=== PATIENT | female | born 1960 | race Caucasian/White ===

== ENCOUNTER → 2017-12-07 08:46 | Outpatient (CLI) | payer OTHER, SELFPAY ==
--- NOTE | 2017-12-07 08:53 | DI.MG.S_ITS ---
BILATERAL DIGITAL SCREENING MAMMOGRAM 3D/2D WITH CAD: 12/07/2017 CLINICAL: Routine screening. Comparison is made to exams dated: 04/22/2016 mammogram and 05/17/2014 mammogram - [facility]. There are scattered fibroglandular elements in both breasts. Current study was also evaluated with a Computer Aided Detection (CAD) system. No significant masses, calcifications, or other findings are seen in either breast. There has been no significant interval change. IMPRESSION: NEGATIVE There is no mammographic evidence of malignancy. A 1 year screening mammogram is recommended. This exam was interpreted at Station ID: [id number]. NOTE: For mammograms, a report in lay terms will be sent to the patient. Approximately 15% of breast malignancies will not be visualized mammographically. In the management of a palpable breast mass, a negative mammogram must not discourage biopsy of a clinically suspicious lesion. Electronically Signed By: Jorge Luis suresh/gordon:12/07/2017 13:24:06 letter sent: Normal Exam ACR BI-RADS Category 1: Negative 3341F
[2017-12-07 11:50] LABS: Cholesterol 176 mg/dL (140-199); Glucose 96 mg/dL (70-100); HDL Cholesterol 93 mg/dL (40-60); LDL Cholesterol Calculated 71 mg/dL (<100); Triglycerides 59 mg/dL (35-150)
== END ==
PROVIDERS: PCP Family Medicine; Visit Provider Family Medicine
DX: Z12.31 Encounter for screening mammogram for malignant neoplasm of breast (principal); Z13.1 Encounter for screening for diabetes mellitus; Z13.29 Encounter for screening for other suspected endocrine disorder; Z13.220 Encounter for screening for lipoid disorders
CPT/HCPCS: 36415; 77063; 77067; 80061; 82947; 84443

== ENCOUNTER 2018-03-20 10:59 | Day surgery (SDC) | payer OTHER, SELFPAY ==
--- NOTE | 2018-03-20 | PATH_ITS ---
[facility] Accession Number: [id number] . 01 Material submitted: . RECTAL POLYP BIOPSY . 02 Diagnosis: Biopsy Rectal Polyp: Hyperplastic polyp involving single biopsy fragment. Single fragment of colon mucosa with prominent lymphoid aggregate. MRV/03/21/2018 . 02 Electronically signed: . Tyler Owens MD, Pathologist NPI- [id number] . 01 Gross description: . Received in one formalin-filled container labeled with the patient's name and labeled rectal biopsy, are two 0.2-0.3 cm portions of tissue, entirely submitted in one cassette. ([id number]) /FRR . 02 Pathologist provided ICD-10: K62.1 . 02 CPT . 018700 Performed at: 01 [facility] [address] [place] [address], [place], [place] [id number] MD James Herrmann MD Phone: [phone] Performed at: [address] [facility] [address] [place], [place] [id number] MD Stefan Menendez MD Phone: [phone]
[2018-03-20 11:16] VITALS: BP 122/77; PULSE 84; RESP 15; TEMP 36; O2SAT 96; BMI 25.8
[2018-03-20] MEDS: SODIUM CHLORIDE 0.9% 1,000 ML 200 ML IV (11:28)
--- NOTE | 2018-03-20 12:29 | PM.HP.1 ---
History of Present Illness Date Patient Seen: 03/20/18 Time Patient Seen: 12:29 Chief complaint: [id number] Narrative: The patient is a woman who has never had a colonoscopy. She is 57 and here for for screening exam. She has no symptoms. No family history colon cancer. Patient History Surgical History History of tonsillectomy Family & Social History Family History: Reviewed 03/20/18 by Pierre Garrison MD Social History: household members spouse Tobacco & Substance use: Smoking Status Never smoker Meds Home Medications Medication Instructions Recorded Confirmed Type diphenhydramine 25 mg capsule 25 mg PO BEDTIME 11/22/17 03/20/18 History melatonin 5 mg tablet 5 mg PO DAILY 11/22/17 03/20/18 History multivitamin tablet 1 tab PO DAILY 11/22/17 11/22/17 History Allergies Allergy/AdvReac Type Severity Reaction Status Date / Time No Known Drug Allergies Allergy Verified 03/20/18 08:05 Review of Systems Review of Systems All systems reviewed & are unremarkable except as noted in HPI and below Exam Vital Signs (past 8 hours): - 03/20/18 11:16 Temperature 96.8 F L Pulse Rate 84 Respiratory Rate 15 Blood Pressure 122/77 Pulse Oximetry 96 Oxygen Delivery Method Room Air Narrative Exam Narrative: 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 Her eyes are nonicteric. Lungs are clear to auscultation without rales or rhonchi. Heart regular rate and rhythm without murmur gallop. Abdomen is mildly protuberant soft nontender without mass. She is alert and oriented x3. Assessment & Plan Plan: Assessment/Plan Narrative: Patient is here for screening colonoscopy. I have discussed the procedure and the rationale with the patient including risks of bleeding, perforation which would necessitate a major operation, failure to find remove all lesions and the potential to tattoo. They appeared to understand and wished to proceed.
--- NOTE | 2018-03-20 12:31 | PM.PREOP ---
Pre-operative Note Interval Note Pre-op Check: Yes History & Physical exam performed today by Physician Changes: No ASA Class (for procedural sedation): I
[2018-03-20] MEDS: fentaNYL 250 MCG/5 ML INJ IV (13:14)
[2018-03-20] MEDS: MIDAZOLAM 5 MG/5 ML VIAL IV (13:14)
[2018-03-20 13:25] VITALS: BP 121/80; PULSE 69; RESP 14; TEMP 36.6; O2SAT 97
[2018-03-20 13:29] VITALS: BP 108/71; PULSE 71; RESP 12; O2SAT 97
--- NOTE | 2018-03-20 13:29 | P.OP.ENDO_ITS ---
Operative Date/Time/Diagnoses Date of procedure: 03/20/18 Time of procedure: 13:23 Pre-op diagnosis: Screening examination. Post-op diagnosis: same (Internal hemorrhoids. Incomplete exam.) Procedure & Clinicians Study performed: Colonoscopy to the ascending colon. Same procedure as scheduled: No (Incomplete exam) Indications: Screening Surgeon: Pierre Garrison Procedure Notes SCOAP/Timeout: Performed Procedure in detail: The patient was placed in the left lateral decubitus position and underwent IV sedation directed by the surgeon consisting of fentanyl and Versed. Digital exam was unremarkable. The scope was inserted and advanced through the rectum into the sigmoid, descending, transverse, and ascending colon.[It was very difficult to get through her colon. She had to be turned pressure applied stiffener applied. When I reached the ascending colon I could not get any further. No matter what manipulation we did, and we did many , I could not get the scope to go beyond. I him back the scope out and attempted to reinsert with no further progress.]. The scope was gradually brought out. Two Polyps were found at[the rectum near the anal verge. These are probably not neoplastic.]. The scope ultimately was retroflexed in the rectum. The appearance was[remarkable for large internal hemorrhoids without ulceration.]. The scope was removed and the patient tolerated the procedure well Scope withdrawal time: Not applicable due to incomple Sedation minutes: 37 Findings: internal hemorrhoids and polyp (Distal rectal polyps. May not be neoplastic.) Specimen(s): other (Polyps) Complications: none Recommendations: Colonscopy in 5 years (Ten years if the polyps are not neoplastic and a barium enema is negative for ascending colon/cecal lesions.) Plan for aftercare: Consider barium enema Follow up: as needed Disposition: PACU
[2018-03-20 13:35] VITALS: BP 107/67; PULSE 68; RESP 10; TEMP 36.3; O2SAT 98
[2018-03-20 14:02] VITALS: BP 119/77; PULSE 75; RESP 14; TEMP 36.4; O2SAT 98
== END 2018-03-20 14:10 | disposition home or self-care (01) ==
PROVIDERS: PCP Family Medicine; Visit Provider Specialist
PROC: 0DJD8ZZ Inspection of Lower Intestinal Tract, Via Natural or Artificial Opening Endoscopic (ICD-10-PCS; CPT 45378; principal; 2018-03-20 12:00)
DX: Z12.11 Encounter for screening for malignant neoplasm of colon (principal); K64.8 Other hemorrhoids
CPT/HCPCS: 45378; 99152; 99153; J2250; J3010

== ENCOUNTER → 2019-01-23 11:58 | Outpatient (CLI) | payer OTHER, SELFPAY ==
--- NOTE | 2019-01-23 | DI.MG.S_ITS ---
BILATERAL DIGITAL SCREENING MAMMOGRAM 3D/2D WITH CAD: 01/23/2019 CLINICAL: Routine screening. Comparison is made to exams dated: 12/07/2017 mammogram - [facility], 04/22/2016 mammogram, and 05/17/2014 mammogram - [facility]. There are scattered fibroglandular elements in both breasts. Current study was also evaluated with a Computer Aided Detection (CAD) system. There is an asymmetry in the right breast middle depth superior region seen on the mediolateral oblique view only. There is possible architectural distortion associated with the asymmetry. This is best seen on [facility] tomosynthesis image . There is a biopsy clip in the left breast. No other significant masses, calcifications, or other findings are seen in either breast. IMPRESSION: INCOMPLETE: NEEDS ADDITIONAL IMAGING EVALUATION The asymmetry with possible associated architectural distortion in the right breast middle depth superior region seen only on the mediolateral oblique view is indeterminate. Additional views with possible ultrasound are recommended. This exam was interpreted at Station ID: [id number]. NOTE: For mammograms, a report in lay terms will be sent to the patient. Approximately 15% of breast malignancies will not be visualized mammographically. In the management of a palpable breast mass, a negative mammogram must not discourage biopsy of a clinically suspicious lesion. Electronically Signed By: aT Pavon M.D. ecl/:01/23/2019 19:30:31 letter sent: Additional Imaging Needed ACR BI-RADS Category 0: Incomplete 3340F
== END ==
PROVIDERS: PCP Family Medicine; Visit Provider Family Medicine
DX: Z12.31 Encounter for screening mammogram for malignant neoplasm of breast (principal)
CPT/HCPCS: 77063; 77067

== ENCOUNTER → 2019-02-19 12:36 | Outpatient (CLI) | payer OTHER, SELFPAY ==
--- NOTE | 2019-02-19 12:39 | DI.US.S_ITS ---
ULTRASOUND OF RIGHT BREAST: 02/19/2019 CLINICAL: Additional evaluation requested from prior study. Comparison is made to exams dated: 02/19/2019 mammogram, 01/23/2019 mammogram, 12/07/2017 mammogram - [facility], 04/22/2016 mammogram, and 05/17/2014 mammogram - [facility]. Real-time ultrasound of the right breast was performed. Frank scale images of the real-time examination were reviewed. No abnormalities were seen sonographically in the right breast. IMPRESSION: NEGATIVE There is no sonographic evidence of malignancy. There is no abnormality seen in the right breast to correspond with the mammography finding which is consistent with normal fibroglandular tissue. A 1 year screening mammogram is recommended. This exam was interpreted at Station ID: [id number]. Electronically Signed By: William Odom M.D. aty/:02/19/2019 14:16:48 letter sent: Normal Exam Ultrasound BI-RADS: 1 Negative
--- NOTE | 2019-02-19 12:39 | DI.MG.S_ITS ---
UNILATERAL RIGHT DIGITAL DIAGNOSTIC MAMMOGRAM 3D/2D WITH ADDITIONAL VIEWS: 02/19/2019 CLINICAL: Additional evaluation requested from prior study. Comparison is made to exams dated: 01/23/2019 mammogram, 12/07/2017 mammogram - [facility], and 04/22/2016 mammogram - [facility]. There are scattered fibroglandular elements in right breast. The asymmetry in the right breast middle depth superior region seen on the mediolateral oblique view only is no longer seen. This is not seen in additional views. This is consistent with summation artifact. No other significant masses or calcifications are seen in the breast. IMPRESSION: INCOMPLETE: NEEDS ADDITIONAL IMAGING EVALUATION The previously described asymmetry disperses with additional views and is consistent with summation artifact. An ultrasound is recommended to confirm the no longer seen asymmetry in the right breast middle depth superior region seen on the mediolateral oblique view only. The recommended ultrasound is scheduled to immediately follow this examination. This exam was interpreted at Station ID: [id number]. NOTE: For mammograms, a report in lay terms will be sent to the patient. Approximately 15% of breast malignancies will not be visualized mammographically. In the management of a palpable breast mass, a negative mammogram must not discourage biopsy of a clinically suspicious lesion. Electronically Signed By: William Odom M.D. aty/:02/19/2019 14:15:22 ACR BI-RADS Category 0: Incomplete 3340F
== END ==
PROVIDERS: PCP Family Medicine; Visit Provider Family Medicine
DX: R92.8 Other abnormal and inconclusive findings on diagnostic imaging of breast (principal)
CPT/HCPCS: 76642; 77065; G0279

== ENCOUNTER → 2019-03-15 11:48 | Outpatient (CLI) | payer OTHER, SELFPAY ==
--- NOTE | 2019-03-15 11:52 | DI.RAD.S_ITS ---
PROCEDURE: XR SACROILIAC JOINT MIN 3V INDICATIONS: LBP and left sacroiliac pain TECHNIQUE: 3 views of the sacroiliac joints were acquired. COMPARISON: [facility], CR, XR LUMBAR SPINE 2-3V, 03/15/2019, 12:03. FINDINGS: Bones: No bony erosions or ankylosis. No suspicious bony lesions. No fractures. There is mild sacroiliac joint degeneration bilaterally. No ankylosis of SI joints. Mild degenerative disc disease in the lower lumbar spine. Soft tissues: Overlying bowel gas pattern is normal. No suspicious soft tissue densities. 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 Dictated by: Alejandra Carpio M.D. on 03/15/2019 at 12:51 Approved by: Alejandra Carpio M.D. on 03/15/2019 at 12:52
--- NOTE | 2019-03-15 11:52 | DI.RAD.S_ITS ---
PROCEDURE: XR LUMBAR SPINE 2-3V INDICATIONS: LBP and left sacroiliac pain TECHNIQUE: 2 views of the lumbar spine were acquired. COMPARISON: [facility], , XR SACROILIAC JOINT MIN 3V, 03/15/2019, 12:03. FINDINGS: Bones: 5 [id number] vertebrae are present. There is grade 1 anterolisthesis of L5 on S1 secondary to pars inter-articularis defects. No vertebral body compression fractures. No suspicious bony lesions. There is mild degenerative disc disease at L2-L3, L3-L4, L4-L5 and L5-S1. Soft tissues: Overlying bowel gas pattern is normal. No suspicious soft tissue calcifications. IMPRESSION: 1. Pars defects at L5 causing grade 1 anterolisthesis at L5-S1 2. Mild degenerative disc disease in lumbar spine. Dictated by: Alejandra Carpio M.D. on 03/15/2019 at 12:52 Approved by: Alejandra Carpio M.D. on 03/15/2019 at 12:55
[2019-03-15 12:34] LABS: Rheumatoid Factor 14.2 IU/mL (<12.0)
[2019-03-15 12:35] LABS: C-Reactive Protein Quant 0.8 mg/dL (<1.0)
[2019-03-15 12:38] LABS: Add Manual Diff / Slide Review NO; Basophils Absolute Auto 0 /uL (0-100); Basophils Percent Auto 0.3 % (0-2); Eosinophils Absolute Auto 400 /uL (0-450); Eosinophils Percent Auto 6.6 % (2-4); Hematocrit 39.6 % (36-46); Hemoglobin 13.4 g/dL (12.0-16.0); Lymphocytes Absolute Auto 2000 /uL (1100-4500); Lymphocytes Percent Auto 35.2 % (25-40); Mean Corpuscular HGB Conc 33.9 % (30-36); Mean Corpuscular Hemoglobin 31.7 PG (26-34); Mean Corpuscular Volume 93.4 fL (80-100); Monocytes Absolute Auto 700 /uL (0-900); Monocytes Percent Auto 11.7 % (3-14); Neutrophils Absolute Auto 2600 /uL (1500-7000); Neutrophils Percent Auto 46.2 % (50-75); Platelet Count 183 X10^3/uL (150-400); Red Blood Cell Count 4.23 X10^6/uL (4.0-5.2); Red Cell Distribution Width 13.4 % (11.6-14.8); White Blood Cell Count 5.7 X10^3/uL (4.5-11.0)
[2019-03-15 13:20] LABS: Erythrocyte Sedimentation Rate 14 MM/HR (0-20)
== END ==
PROVIDERS: PCP Family Medicine; Visit Provider Family Medicine
DX: M46.1 Sacroiliitis, not elsewhere classified (principal)
CPT/HCPCS: 36415; 72100; 72202; 85025; 85651; 86140; 86430

== ENCOUNTER → 2020-04-15 09:22 | Outpatient (CLI) | payer OTHER, SELFPAY ==
[2020-04-15 10:28] LABS: Cholesterol 155 mg/dL (140-199); Glucose 106 mg/dL (70-100); HDL Cholesterol 76 mg/dL (40-60); LDL Cholesterol Calculated 68 mg/dL (<100); Triglycerides 56 mg/dL (35-150)
[2020-04-15 10:47] LABS: TSH w/ Reflex to FT4 2.72 uIU/mL (0.47-4.68)
== END ==
PROVIDERS: PCP Family Medicine; Referring Provider Family Medicine; Visit Provider Family Medicine
DX: Z13.1 Encounter for screening for diabetes mellitus (principal); Z83.49 Family history of other endocrine, nutritional and metabolic diseases; Z13.220 Encounter for screening for lipoid disorders
CPT/HCPCS: 36415; 80061; 82947; 84443

== ENCOUNTER → 2023-07-25 12:46 | Outpatient (CLI) | payer OTHER, SELFPAY ==
--- NOTE | 2023-07-25 | DI.MG.S_ITS ---
BILATERAL DIGITAL SCREENING MAMMOGRAM 3D/2D WITH CAD: 07/25/2023 CLINICAL: Routine screening. Comparison is made to exams dated: 03/25/2021 mammogram - [facility], 02/19/2019 mammogram, 01/23/2019 mammogram, and 12/07/2017 mammogram - [facility]. There are scattered areas of fibroglandular density in both breasts (category b / 25%-50% glandular tissue). Current study was also evaluated with a Computer Aided Detection (CAD) system. There is a biopsy clip in the left breast. No significant masses, calcifications, or other findings are seen in either breast. There has been no significant interval change. IMPRESSION: NEGATIVE There is no mammographic evidence of malignancy. A 1 year screening mammogram is recommended. Based on the Tyrer Cuzick model (a risk assessment model) the patient's lifetime risk is 6.8% and her 10 year risk is 3.0%. According to the ACR, ACS, and NCCN guidelines, an annual breast MRI exam along with mammogram is recommended if the patient's lifetime risk is 20% or greater. This exam was interpreted at Station ID: [id number]. NOTE: For mammograms, a report in lay terms will be sent to the patient. Approximately 15% of breast malignancies will not be visualized mammographically. In the management of a palpable breast mass, a negative mammogram must not discourage biopsy of a clinically suspicious lesion. Electronically Signed By: Kadi katz/gordon:07/25/2023 15:43:03 letter sent: Normal Exam ACR BI-RADS Category 1: Negative 3341F
== END ==
LOC: MAMMO 12:48
PROVIDERS: PCP Family Medicine; Referring Provider Family Medicine; Visit Provider Family Medicine
DX: Z12.31 Encounter for screening mammogram for malignant neoplasm of breast (principal); R92.323 Mammographic fibroglandular density, bilateral breasts
CPT/HCPCS: 77063; 77067

== ENCOUNTER → 2023-07-26 08:41 | Outpatient (CLI) | payer OTHER, SELFPAY ==
[2023-07-26 10:20] LABS: Cholesterol 177 mg/dL (140-199); Glucose 98 mg/dL (80-110); HDL Cholesterol 76 mg/dL (40-60); LDL Cholesterol Calculated 79 mg/dL (<100); Triglycerides 108 mg/dL (35-150)
== END ==
PROVIDERS: PCP Family Medicine; Referring Provider Family Medicine; Visit Provider Family Medicine
DX: E78.5 Hyperlipidemia, unspecified (principal); Z13.1 Encounter for screening for diabetes mellitus
CPT/HCPCS: 36415; 80061; 82947